=== PATIENT | male | born 1975 | race Caucasian/White ===

== ENCOUNTER 2017-06-03 16:14 | Emergency (ER) | payer SELFPAY ==
[~2017-06-03] VITALS: Ht 185.4 cm; Wt 99.1 kg
[2017-06-03 16:45] LABS: HEMOGLOBIN 13.8 g/dL (13.5-18.0); MEAN CELL VOLUME 87 fl (78-100); MEAN CORPUSCULAR HEMOGLOBIN 30 pg (27-31); MEAN CORPUSCULAR HGB CONC 35 g/dL (33-37); MEAN PLATELET VOLUME 10.8 fl (7.4-10.4); PLATELET COUNT 219 K/mm3 (130-400); WHITE BLOOD COUNT 11.3 K/mm3 (4.8-10.8)
[2017-06-03 17:14] LABS: ALBUMIN 4.5 g/dL (3.5-5.0); BUN/CREATININE RATIO 16.9 (6.0-26.0); CALCIUM 8.9 mg/dL (8.4-10.2); TOTAL PROTEIN 7.9 g/dL (6.3-8.2)
[2017-06-03 18:35] LABS: URINE APPEARANCE CLEAR; URINE BILIRUBIN NEGATIVE (NEGATIVE); URINE BLOOD NEGATIVE (NEGATIVE); URINE COLOR YELLOW; URINE GLUCOSE NEGATIVE (NEGATIVE); URINE KETONE TR (NEGATIVE); URINE LEUKOCYTE ESTERASE NEGATIVE (NEGATIVE); URINE MUCUS PRESENT (NOT PRESENT); URINE NITRATE NEGATIVE (NEGATIVE); URINE PROTEIN(semi-quant) NEGATIVE (NEGATIVE); URINE UROBILINOGEN NORMAL (NORMAL)
[2017-06-03 19:00] LABS: LYMPHOCYTE 9 % (20-51); MONOCYTE 4 % (3-10); NEUTROPHILS 87 % (42-75)
[2017-06-03] MEDS ORDERED: NORCO 325 MG-51 TA1 PO (22:11)
[2017-06-03] MEDS ORDERED: CYCLOBENZAPRINE10 M1 PO (22:11)
[2017-06-03 22:22] VITALS: BP 145/78
== END 2017-06-03 22:20 | disposition home or self-care (01) ==
LOC: ED 16:14
PROVIDERS: Nurse Practitioner Family
DX: S22.42XA Multiple fractures of ribs, left side, initial encounter for closed fracture (principal); W17.89XA Other fall from one level to another, initial encounter; Y92.61 Building [any] under construction as the place of occurrence of the external cause; S30.811A Abrasion of abdominal wall, initial encounter
CPT/HCPCS: J7030

== ENCOUNTER → 2017-06-03 | Outpatient (CLI) | payer SELFPAY ==
[~2017-06-03] MED LIST: CYCLOBENZAPRINE10 M1 PO; NORCO 325 MG-51 TA1 PO
== END ==
LOC: RAD 14:50
DX: S22.42XA Multiple fractures of ribs, left side, initial encounter for closed fracture (principal); Z91.81 History of falling

== ENCOUNTER 2019-01-13 12:28 | Emergency (ER) | payer OTHER ==
[2019-01-13] MEDS ORDERED: BACTRIM DS TAB1 EACH PO (14:04)
[2019-01-13 14:20] VITALS: BP 125/84
== END 2019-01-13 14:18 | disposition home or self-care (01) ==
LOC: ED 12:28
DX: S61.213A Laceration without foreign body of left middle finger without damage to nail, initial encounter (principal); Z23 Encounter for immunization; W27.0XXA Contact with workbench tool, initial encounter; Y92.69 Other specified industrial and construction area as the place of occurrence of the external cause
CPT/HCPCS: 90715